=== PATIENT | male | born 1995 | race American Indian/Alaskan Native ===

== ENCOUNTER 2016-10-27 14:56 | Emergency (ER) | payer OTHER ==
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
[2016-10-27 19:04] VITALS: BP 124/74; PULSE 57; RESP 20; TEMP 98.1
[2016-10-27 20:51] VITALS: O2SAT 98
== END 2016-10-27 19:02 | disposition home or self-care (01) ==
LOC: C.ER 14:56
DX: S39.012A Strain of muscle, fascia and tendon of lower back, initial encounter (principal); S09.90XA Unspecified injury of head, initial encounter; V47.0XXA Car driver injured in collision with fixed or stationary object in nontraffic accident, initial encounter; Y92.411 Interstate highway as the place of occurrence of the external cause